=== PATIENT | female | born 1955 | race Caucasian/White ===

== ENCOUNTER 2022-09-20 15:27 | Outpatient (RCR) | payer MEDICARE, BC | END 2022-10-12 | LOC: OT 15:27 | PROVIDERS: ATTEND Orthopaedic Surgery | DX: S62.101A Fracture of unspecified carpal bone, right wrist, initial encounter for closed fracture (principal) ==

== ENCOUNTER 2022-11-04 07:53 | Outpatient (RCR) | payer MEDICARE, BC | END 2022-11-11 | LOC: PT 07:53 | PROVIDERS: ATTEND Internal Medicine | DX: R26.9 Unspecified abnormalities of gait and mobility (principal) ==

== ENCOUNTER 2023-03-20 07:42 | Outpatient (RCR) | payer MEDICARE, BC | END 2023-04-13 | LOC: PT 07:42 | PROVIDERS: ATTEND Internal Medicine | DX: Z99.89 Dependence on other enabling machines and devices (principal) ==